=== PATIENT | male | born 1965 | race African-American/Black ===

== ENCOUNTER 2018-07-27 12:15 | Inpatient (IN) | payer OTHER ==
[2018-07-27 13:53] VITALS: BMI 20.5
--- NOTE | 2018-07-27 16:51 | HP ---
COWS - Scale Resting Pulse: 0= DE 80 or Below Sweatin=Flushed/Facial Moisture Restless Observation: 1= Difficult to Sit Still Pupil Size: 2= Moderately Dilated Bone or Joint Aches: 1= Mild Discomfort Runny Nose/ Eye Tearin= Nasal Congestion GI Upset > 30mins: 1= Stomach Cramp Tremor Observation: 2= Slight Tremor Visible Yawning Observation: 0= None Anxiety or Irritability: 1=Feels Anxious/Irritable Goose Flesh Skin: 0=Smooth Skin COWS Score: 11 CIWA Score - Admission Criteria [facility]ASAS Guidelines: Admission for Medically Managed Detox: Requires at least one of the followin. CIWA greater than 12 2. Seizures within the past 24 hours 3. Delirium tremens within the past 24 hours 4. Hallucinations within the past 24 hours 5. Acute intervention needed for co occurring medical disorder 6. Acute intervention needed for co occurring psychiatric disorder 7. Severe withdrawal that cannot be handled at a lower level of care (continued vomiting, continued diarrhea, abnormal vital signs) requiring intravenous medication and/or fluids 8. Admission ROS [facility] Chief Complaint: Here for heroin withdrawal. Allergies/Adverse Reactions: Allergies Allergy/AdvReac Type Severity Reaction Status Date / Time No Known Allergies Allergy Verified 07/27/18 18:51 History of Present Illness: Here for detox from heroin. This is patient's first attempt at detox. Heroin use began at age 47. (Fentanyl in heroin) Nasal use. Cocaine use began at age 21. Nicotine use began at age 12. Alcohol use rare. Denies hx of seizures. Last overdose 3 weeks ago. Now has a Narcan kit at home. Longest length of sobriety 2 days. PMHx: Mild HTN, Increased cholesterol MHHx: Insomnia. Mild depression. Denies thoughts of harming self or others. Patient Name: Dave Verdugo Date: 1965 Address: [address] [place] [address] Sex: Male Rx Written Rx Dispensed Drug Quantity Days Supply Prescriber Name 06/17/2018 06/17/2018 zolpidem tartrate 5 mg tablet 30 30 Kofi Mena Exam Limitations: No Limitations - Ebola screening Have you traveled outside of the country in the last 21 days: No Have you had contact with anyone from an Ebola affected area: No Have you been sick,other than usual withdrawal symptoms: No Do you have a fever: No - Review of Systems Constitutional: Diaphoresis, Changes in sleep (Difficulty falling asleep.) EENT: reports: Nose Congestion, Dental Problems (Very few teeth. Chews and swallows ok.) Respiratory: reports: No Symptoms reported, Other (Closed old trache wound from childhood.) Cardiac: reports: No Symptoms Reported GI: reports: Nausea : reports: No Symptoms Reported Musculoskeletal: reports: Back Pain (Chronic intermittent back pain. States more muscle than bone pain. None at this time) Integumentary: reports: Other (Athlete's Foot) Neuro: reports: Tremors Endocrine: reports: No Symptoms Reported Hematology: reports: No Symptoms Reported Psychiatric: reports: Judgement Intact, Anxious, Depressed (Denies thoughts of harming self or others.), Disorientated (Knows year and month.) Patient History - PPD History Previous Implant?: Yes Documented Results: Negative w/o proof Implanted On Prior [facility] Admission?: No PPD to be Administered?: Yes - Smoking Cessation Smoking history: Current every day smoker Have you smoked in the past 12 months: Yes Aproximately how many cigarettes per day: 20 (Used to smoke more) Hx Chewing Tobacco Use: No Initiated information on smoking cessation: Yes 'Breaking Loose' booklet given: 07/27/18 - Substance & Tx. History Hx Alcohol Use: No Hx Substance Use: Yes Substance Use Type: Cocaine, Heroin Hx Substance Use Treatment: No (First treatment attempt) - Substances Abused Heroin Route: SNIFF Frequency: Daily Amount used: 12 BAGS Age of first use: 46 Date of Last Use: 07/27/18 Cocaine Route: Smoking Frequency: Daily Amount used: $100 Age of first use: 21 Date of Last Use: 07/27/18 Admission Physical Exam BHS - Vital Signs Vital Signs: Vital Signs - 24 hr 07/27/18 13:52 Temperature 97.8 F Pulse Rate 68 Respiratory 18 Rate Blood Pressure 148/78 - Physical General Appearance: Yes: Appropriately Dressed, Mild Distress, Tremorous, Sweating, Anxious HEENTM: Yes: EOMI, Hearing grossly Normal, Normocephalic, Normal Voice, RACHID ( Pupils = 4 mm), Pharynx Normal Respiratory: Yes: Lungs Clear, Normal Breath Sounds, No Respiratory Distress Neck: Yes: No masses,lesions,Nodules, Supple Breast: Yes: Breast Exam Deferred Cardiology: Yes: Regular Rhythm, Regular Rate, S1, S2, Murmur Abdominal: Yes: Non Tender, Flat, Soft Genitourinary: Yes: Within Normal Limits Back: Yes: Normal Inspection Musculoskeletal: Yes: full range of Motion, Gait Steady Extremities: Yes: Normal Capillary Refill, Normal Range of Motion, Non-Tender, Tremors (Mod tremors w/ arm extension) 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 intact, Alert, Motor Strength 5/5, Normal Mood /Affect Integumentary: Yes: Normal Color, Dry (Decreased skin turgor.), Warm Lymphatic: Yes: Within Normal Limits - Diagnostic (1) Opioid dependence with withdrawal Current Visit: Yes Status: Acute (2) Cocaine dependence, uncomplicated Current Visit: Yes Status: Chronic (3) Nicotine dependence, uncomplicated Current Visit: Yes Status: Chronic Qualifiers: Nicotine product type: cigarettes Qualified Code(s): F17.210 - Nicotine dependence, cigarettes, uncomplicated (4) Hypertension Current Visit: Yes Status: Chronic Qualifiers: Hypertension type: unspecified Qualified Code(s): I10 - Essential (primary ) hypertension Cleared for Admission [facility] - Detox or Rehab [facility] Level of Care: Medically Managed Detox Regimen/Protocol: Methadone [facility] Breath Alcohol Content Breath Alcohol Content: 0 Urine Drug Screen - Results Drug Screen Negative: No Urine Drug Screen Results: CHIARA-Cocaine, OPI-Opiates, FEN-Fentanyl Inpatient Rehab Admission - Rehab Decision to Admit Inpatient rehab admission?: No
[2018-07-27] MEDS ORDERED: NALOXONE HCL 0.4 MG/ML VIAL IVPUSH PRN (20:49)
[2018-07-27] MEDS ORDERED: cloNIDine HCL 0.1 MG TABLET PO PRN (20:49)
[2018-07-27] MEDS ORDERED: MAG HYDROX/AL HYDROX/SIMETH 30 ML UNIT-DOSE CUP PO PRN (20:51)
[2018-07-27] MEDS ORDERED: PROCHLORPERAZINE MALEATE 5 MG TABLET PO PRN (20:51)
[2018-07-27] MEDS ORDERED: MENTHOL/PHENOL 1 EACH UD MM PRN (20:51)
[2018-07-27] MEDS ORDERED: BISMUTH SUBSALICYLATE 524 MG/30 ML UD PO PRN (20:51)
[2018-07-27] MEDS ORDERED: MELATONIN 5 MG TABLETS PO PRN ×2 (20:51→20:55)
[2018-07-27] MEDS ORDERED: ACETAMINOPHEN 325 MG TABLET (FP) PO PRN ×2 (20:51)
[2018-07-27] MEDS ORDERED: NICOTINE POLACRILEX 2 MG GUM BUC PRN (20:51)
[2018-07-27] MEDS ORDERED: MAGNESIUM CITRATE 300 ML BOTTLE PO PRN (20:51)
[2018-07-27] MEDS ORDERED: MAGNESIUM HYDROX 2400MG/30ML ORAL SUSPENSION 30 ML CUP PO PRN (20:51)
[2018-07-27] MEDS ORDERED: METHOCARBAMOL 500 MG TABLET PO PRN (20:51)
[2018-07-27] MEDS ORDERED: IBUPROFEN 400 MG TABLET (FP) PO PRN (20:51)
[2018-07-27] MEDS ORDERED: guaiFENesin 200 MG/10 ML 10 ML UNIT-DOSE CUPS PO PRN (20:51)
[2018-07-27] MEDS: THIAMINE HCL 100 MG TABLET (FP) PO SCH (22:40)
[2018-07-27] MEDS ORDERED: METHADONE HCL 10 MG TABLET (FOR DETOX USE ONLY) PO ONE (23:00)
--- NOTE | 2018-07-28 09:29 | EKG ---
Test Reason : Blood Pressure : / mmHG Vent. Rate : 066 BPM Atrial Rate : 066 BPM P-R Int : 162 ms QRS Dur : 094 ms QT Int : 414 ms P-R-T Axes : 043 068 052 degrees QTc Int : 434 ms NORMAL SINUS RHYTHM VOLTAGE CRITERIA FOR LEFT VENTRICULAR HYPERTROPHY ABNORMAL ECG NO PREVIOUS ECGS AVAILABLE Confirmed by KADEEM FRANKS, TRE ([id number]) on 07/28/2018 9:29:06 AM Referred By: Confirmed By:TRE QUAN MD
[2018-07-28] MEDS ORDERED: METHADONE HCL 10 MG TABLET (FOR DETOX USE ONLY) PO ONE (10:00)
--- NOTE | 2018-07-28 10:26 | CONSULT ---
[facility] Psychiatric Consult - Data Date of interview: 07/28/18 Admission source: Identifying data: Mr Verdugo is a 53 years old Black male living as , father of 2 children, unemployed receiving SSI, domiciled living with seeking detox treatment for opioid and cocaine Substance Abuse History: Reports history of heroin and cocaine use. Refer to addiction counselor's summary for further information Medical History: Significant for hypertension and dyslipidemia. Smokes cigarettes 1 ppd Psychiatric History: Patient was initially ethan irritable and not too coperative in providing history. However as the interview continued, he became more relaxed. Reports being diagnosed with Bipolar/Schizophrenia in 1998. Reports two previous psychiatric hospitalizations both at [facility]. Reports receiving outpatient psychiatric treatment at [facility] in the [place] and he is precribed Seroquel 300 mg/hs, Zoloft 50 mg/day and Gabapetin 300mg/hs. However according to entry from staff at [facility], mo confirmed on that patient is taking Seroqel XR 150 mg po HS. Denies previous suicidal attempt. At present, denies experiencing psychotic, manic or depressive symptoms, S/H ideations. However, reports feeling anxious and sleeping poorly Physical/Sexual Abuse/Trauma History: Denies history of emotional, physical or sexual abuse as well as DV relationship. No service Additional Comment: Reports history of multiple previous arrests including 5 felony convictions. Mental Status Exam - Mental Status Exam Alert and Oriented to: Time, Place, Person Cognitive Function: Fair Patient Appearance: Well Groomed Mood: Anxious Affect: Appropriate Speech Pattern: Clear Voice Loudness: Normal Thought Process: Intact, Goal Oriented Hallucinations: Denies Suicidal Ideation: Denies Homicidal Ideation: Denies Insight/Judgement: Poor Sleep: Poorly Appetite: Good Muscle strength/Tone: Normal Gait/Station: Normal Psychiatric Findings - Problem List ([place] 1, 2,3) (1) Schizoaffective disorder Current Visit: Yes Status: Chronic (2) Substance-induced anxiety disorder Current Visit: Yes Status: Acute (3) Substance-induced sleep disorder Current Visit: Yes Status: Acute (4) Opioid dependence with withdrawal Current Visit: Yes Status: Acute (5) Cocaine dependence, uncomplicated Current Visit: Yes Status: Acute (6) Nicotine dependence, uncomplicated Current Visit: Yes Status: Chronic Qualifiers: Nicotine product type: cigarettes Qualified Code(s): F17.210 - Nicotine dependence, cigarettes, uncomplicated (7) Hypertension Current Visit: Yes Status: Chronic Qualifiers: Hypertension type: unspecified Qualified Code(s): I10 - Essential (primary ) hypertension (8) HLD (hyperlipidemia) Current Visit: Yes Status: Acute - Initial Treatment Plan Initial Treatment Plan: 1) Continue Seroquel XR 150 mg po HS, Zoloft 50 mg po daily and Gabapentin 300 mg po HS. 2) Continue inpatient detoxification
[2018-07-28] MEDS: PRENATAL VITAMINS W/ FOLIC ACID TABLET (FP) PO SCH (10:31)
[2018-07-28] MEDS: NICOTINE 21 MG/24 HOURS TOPICAL PATCH TD SCH (10:31)
--- NOTE | 2018-07-28 10:44 | PN ---
BHS COWS - Scale Resting Pulse: 0= DC 80 or Below Sweatin=Flushed/Facial Moisture Restless Observation: 1= Difficult to Sit Still Pupil Size: 0= Normal to Room Light Bone or Joint Aches: 2= Severe Diffuse Aches Runny Nose/ Eye Tearin= Runny Nose/Eyes GI Upset > 30mins: 2= Nausea/Diarrhea Tremor Observation of Outstretched Hands: 2= Slight Tremor Visible Yawning Observation: 2= >3x During Session Anxiety or Irritability: 2=Irritable/Anxious Goose Flesh Skin: 0=Smooth Skin COWS Score: 15 BHS Progress Note (SOAP) Subjective: sweats shakes interrupted sleep body aches irritable restless Objective: 07/28/18 10:44 Vital Signs Temperature 98.1 F 07/28/18 09:28 Pulse Rate 60 07/28/18 09:28 Respiratory Rate 18 07/28/18 09:28 Blood Pressure 121/63 07/28/18 09:28 O2 Sat by Pulse Oximetry (%) labs pending aaox3 ambulating no acute distress Assessment: 07/28/18 10:46 withdrawal sx Plan: continue detox increase fluids labs pending
[2018-07-28 12:17] LABS: HEMOGLOBIN 12.8 GM/dL (11.7-16.9); MCH 29.4 pg (25.7-33.7); MCHC 32.9 g/dl (32.0-35.9); MEAN CELL VOLUME 89.5 fl (80-96); MEAN PLT VOLUME 9.5 fl (7.5-11.1); PLATELET COUNT 191 K/MM3 (134-434); RBC 4.36 M/mm3 (4.00-5.60); RDW 13.6 % (11.9-15.9); WHITE BLOOD COUNT 4.5 K/mm3 (4.0-10.0)
[2018-07-28 12:24] LABS: ALK PHOS 85 U/L (45-117); ANION GAP 6 MMOL/L (8-16); BILIRUBIN,TOTAL 0.2 mg/dL (0.2-1); BLOOD UREA NITROGEN 15 mg/dL (7-18); CALCIUM 8.8 mg/dL (8.5-10.1); CHLORIDE 108 mmol/L (98-107); CO2 29 mmol/L (21-32); GLUCOSE,RANDOM 72 mg/dL (74-106); POTASSIUM 4.1 mmol/L (3.5-5.1); SGOT/AST 11 U/L (15-37); SGPT/ALT 14 U/L (13-61); SODIUM 143 mmol/L (136-145); TOT PROT 5.8 g/dl (6.4-8.2)
[2018-07-28] MEDS: SERTRALINE HCL 50 MG TABLET (FP) PO SCH (12:36)
[2018-07-28] MEDS: GABAPENTIN 300 MG CAPSULE (FP) PO SCH (22:07)
[2018-07-28] MEDS: THIAMINE HCL 100 MG TABLET (FP) PO SCH (22:07)
[2018-07-29] MEDS ORDERED: METHADONE HCL 10 MG TABLET (FOR DETOX USE ONLY) PO ONE (10:00)
[2018-07-29] MEDS: SERTRALINE HCL 50 MG TABLET (FP) PO SCH (10:52)
[2018-07-29] MEDS: NICOTINE 21 MG/24 HOURS TOPICAL PATCH TD SCH (10:52)
[2018-07-29] MEDS: PRENATAL VITAMINS W/ FOLIC ACID TABLET (FP) PO SCH (10:52)
--- NOTE | 2018-07-29 10:57 | PN ---
BHS COWS - Scale Resting Pulse: 1= OR 81-100 Sweatin=Flushed/Facial Moisture Restless Observation: 1= Difficult to Sit Still Pupil Size: 0= Normal to Room Light Bone or Joint Aches: 2= Severe Diffuse Aches Runny Nose/ Eye Tearin= None GI Upset > 30mins: 0= None Tremor Observation of Outstretched Hands: 2= Slight Tremor Visible Yawning Observation: 1= 1-2x During Session Anxiety or Irritability: 2=Irritable/Anxious Goose Flesh Skin: 0=Smooth Skin COWS Score: 11 BHS Progress Note (SOAP) Subjective: sweats interrupted sleep agitation body aches Objective: 07/29/18 10:56 Vital Signs Temperature 97.5 F L 07/29/18 09:52 Pulse Rate 91 H 07/29/18 09:52 Respiratory Rate 16 07/29/18 09:52 Blood Pressure 127/84 07/29/18 09:52 O2 Sat by Pulse Oximetry (%) Laboratory Tests 07/28/18 07/28/18 07/28/18 07:30 07:30 07:30 WBC 4.5 RBC 4.36 Hgb 12.8 Hct 39.0 MCV 89.5 MCH 29.4 MCHC 32.9 RDW 13.6 Plt Count 191 MPV 9.5 Sodium 143 Potassium 4.1 Chloride 108 H Carbon Dioxide 29 Anion Gap 6 L BUN 15 Creatinine 1.0 Creat Clearance w eGFR 78.16 Random Glucose 72 L Calcium 8.8 Total Bilirubin 0.2 AST 11 L ALT 14 Alkaline Phosphatase 85 Total Protein 5.8 L Albumin 3.0 L RPR Titer Nonreactive aaox3 ambulating no acute distress Assessment: 07/29/18 10:56 withdrawal sx Plan: continue detox increase fluids
[2018-07-29] MEDS: GABAPENTIN 300 MG CAPSULE (FP) PO SCH (22:09)
[2018-07-29] MEDS: THIAMINE HCL 100 MG TABLET (FP) PO SCH (22:09)
--- NOTE | 2018-07-30 09:58 | PN ---
BHS Progress Note (SOAP) Subjective: feeling better little sweats Objective: 07/30/18 10:07 Vital Signs Temperature 96.8 F L 07/30/18 09:32 Pulse Rate 75 07/30/18 09:32 Respiratory Rate 18 07/30/18 09:32 Blood Pressure 143/92 07/30/18 09:32 O2 Sat by Pulse Oximetry (%) aaox3 ambulating no acute distress Assessment: 07/30/18 10:10 mild withdrawal sx Plan: continue detox increase fluids d/c in am
[2018-07-30] MEDS ORDERED: METHADONE HCL 10 MG TABLET (FOR DETOX USE ONLY) PO ONE (10:00)
[2018-07-30] MEDS: SERTRALINE HCL 50 MG TABLET (FP) PO SCH (10:15)
[2018-07-30] MEDS: PRENATAL VITAMINS W/ FOLIC ACID TABLET (FP) PO SCH (10:15)
[2018-07-30] MEDS: NICOTINE 21 MG/24 HOURS TOPICAL PATCH TD SCH (10:16)
[2018-07-30] MEDS: GABAPENTIN 300 MG CAPSULE (FP) PO SCH (22:30)
[2018-07-30] MEDS: THIAMINE HCL 100 MG TABLET (FP) PO SCH (22:31)
[2018-07-31] MEDS ORDERED: METHADONE HCL 5 MG TABLET (FOR DETOX USE ONLY) PO ONE (06:00)
[2018-07-31 06:24] VITALS: BP 123/92; PULSE 82; TEMP 95.7
--- NOTE | 2018-07-31 09:31 | DS ---
[facility] Detox Discharge Summary Admission Date: 07/27/18 Discharge Date: 07/31/18 - History Present History: Cocaine Dependence, Opioid Dependence - Physical Exam Results Vital Signs: Vital Signs Temperature 95.7 F L 07/31/18 06:00 Pulse Rate 82 07/31/18 06:00 Respiratory Rate 18 07/31/18 06:00 Blood Pressure 123/92 07/31/18 06:00 O2 Sat by Pulse Oximetry (%) - Treatment Hospital Course: Detox Protocol Followed, Detoxed Safely, Responded well, Discharged Condition Good, Rehab Referral Accepted - Medication Discharge Medications: Ambulatory Orders Quetiapine Fumarate "Xr" [Seroquel XR] 150 tablet PO HS 07/27/18 - Diagnosis (1) Cocaine dependence, uncomplicated Current Visit: Yes Status: Chronic (2) HLD (hyperlipidemia) Current Visit: Yes Status: Chronic Qualifiers: Hyperlipidemia type: unspecified Qualified Code(s): E78.5 - Hyperlipidemia , unspecified (3) Opioid dependence with withdrawal Current Visit: Yes Status: Chronic (4) Substance-induced anxiety disorder Current Visit: Yes Status: Chronic (5) Substance-induced sleep disorder Current Visit: Yes Status: Acute (6) Hypertension Current Visit: Yes Status: Chronic Qualifiers: Hypertension type: unspecified Qualified Code(s): I10 - Essential (primary ) hypertension (7) Nicotine dependence, uncomplicated Current Visit: Yes Status: Chronic Qualifiers: Nicotine product type: cigarettes Qualified Code(s): F17.210 - Nicotine dependence, cigarettes, uncomplicated (8) Schizoaffective disorder Current Visit: Yes Status: Chronic - AMA Did Patient Leave Against Medical Advice: No (referred to [facility])
== END 2018-07-31 08:45 | disposition home or self-care (01) | DRG 773 ==
LOC: YASAS 12:15 → Y6N 21:01
PROVIDERS: ADMIT Surgery; ATTEND Surgery
PROC: HZ2ZZZZ Detoxification Services for Substance Abuse Treatment (ICD-10-PCS; principal; 2018-07-27)
DX: F11.23 Opioid dependence with withdrawal (principal); F14.20 Cocaine dependence, uncomplicated; F17.210 Nicotine dependence, cigarettes, uncomplicated; F25.9 Schizoaffective disorder, unspecified; F31.9 Bipolar disorder, unspecified; F19.280 Other psychoactive substance dependence with psychoactive substance-induced anxiety disorder; F19.282 Other psychoactive substance dependence with psychoactive substance-induced sleep disorder; I10 Essential (primary) hypertension; E78.5 Hyperlipidemia, unspecified; E78.00 Pure hypercholesterolemia, unspecified
CPT/HCPCS: 36415; 80053; 85027; 86593; 93005; 93010